=== PATIENT | female | born 2000 | race African-American/Black ===

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

== ENCOUNTER 2019-09-05 18:50 | Emergency (ER) | payer MEDICARE, MEDICAID ==
[~2019-09-05] VITALS: Ht 167.6 cm; Wt 73.6 kg
[2019-09-05 18:58] VITALS: Ht 167.6 cm; Wt 73.6 kg
[2019-09-05 19:55] LABS: BASOPHILS 0.5 % (0-2); CALC OSMOLALITY 276 mosm/kg (275-300); CARBON DIOXIDE 20.5 mmol/L (21.0-32.0); CHLORIDE - SERUM 108 mmol/L (98-107); CREATININE - SERUM 0.5 mg/dL (0.6-1.3); EOSINOPHILS 1.8 % (0-7); GLUCOSE 91 mg/dL (74-106); HEMATOCRIT 25.7 % (36.0-48.0); IMMATURE GRANULOCYTES 0.2 % (0-5); MCH 29.5 pg (26.0-34.0); MCV 84.3 fL (80.0-100.0); MEAN PLATELET VOLUME 9.4 fL (7.4-10.4); MONOCYTES 6.9 % (2-11); NEUTROPHILS 40.6 % (40-80); POTASSIUM - SERUM 3.6 mmol/L (3.5-5.1); RBC 3.05 10x6/uL (4.00-5.40); RDW 15.8 % (11.5-14.5); SODIUM 140 mmol/L (136-145); UREA NITROGEN 7 mg/dL (7-18); WBC 13.1 10x3/uL (4.8-10.8); eGFR NON AFRICAN AMERICAN > 90 mL/min (90-120)
[2019-09-05 19:56] LABS: PLATELET COUNT 486 10x3/uL (130-400)
[2019-09-05 20:06] LABS: ALKALINE PHOSPHATASE 100 U/L (46-116); ALT (SGPT) 27 U/L (10-68); BILIRUBIN - TOTAL 1.78 mg/dL (0.2-1.3); PROTEIN - SERUM 8.1 g/dL (6.4-8.2)
[2019-09-05 20:18] LABS: APPEARANCE CLEAR (CLEAR); COLOR YELLOW (YELLOW); HCG URINE NEGATIVE (NEGATIVE)
[2019-09-05 20:19] LABS: BILIRUBIN NEGATIVE (NEGATIVE); GLUCOSE NEGATIVE (NEGATIVE); KETONE NEGATIVE (NEGATIVE); NITRITE NEGATIVE (NEGATIVE); PROTEIN NEGATIVE (NEGATIVE); RED CELLS - URINE OCC /hpf (0-5); UROBILINOGEN NORMAL (NORMAL); WHITE CELLS - URINE 0-5 /hpf (NEGATIVE)
[2019-09-05 20:20] LABS: BACTERIA FEW /hpf (NEGATIVE); EPITHELIAL CELLS 0-5 /hpf (0-5)
[2019-09-05 22:50] VITALS: BP 112/50
== END 2019-09-05 22:50 | disposition home or self-care (01) ==
LOC: D.ER 18:50
PROVIDERS: Family Medicine
DX: D57.1 Sickle-cell disease without crisis (principal); M79.605 Pain in left leg; M79.604 Pain in right leg; J45.909 Unspecified asthma, uncomplicated

== ENCOUNTER 2019-11-15 23:44 | Inpatient (IN) | payer MEDICARE, MEDICAID ==
[~2019-11-15] VITALS: Ht 167.6 cm; Wt 76.5 kg
[2019-11-16] VITALS (18 sets, daily range): BP systolic 89–114; BP diastolic 40–72
[2019-11-16 01:15] LABS: BASOPHILS 0.2 % (0-2); EOSINOPHILS 1.7 % (0-7); HEMATOCRIT 24.5 % (36.0-48.0); HEMOGLOBIN 8.5 g/dL (12-16); IMMATURE GRANULOCYTES 0.3 % (0-5); LYMPHOCYTES 49.2 % (15-50); MCH 28.6 pg (26.0-34.0); MCHC 34.7 g/dL (31.0-37.0); MCV 82.5 fL (80.0-100.0); MEAN PLATELET VOLUME 9.7 fL (7.4-10.4); MONOCYTES 6.1 % (2-11); NEUTROPHILS 42.5 % (40-80); PLATELET COUNT 433 10x3/uL (130-400); RBC 2.97 10x6/uL (4.00-5.40); RDW 16.3 % (11.5-14.5); WBC 16.8 10x3/uL (4.8-10.8)
[2019-11-16 01:18] LABS: UDS - AMPHET NEGATIVE QUAL (NEGATIVE); UDS - BARB NEGATIVE QUAL (NEGATIVE); UDS - BENZO NEGATIVE QUAL (NEGATIVE); UDS - COCAINE NEGATIVE QUAL (NEGATIVE); UDS - OPIATE NEGATIVE QUAL (NEGATIVE); UDS - PCP NEGATIVE QUAL (NEGATIVE); UDS - THC POSITIVE QUAL (NEGATIVE)
[2019-11-16 01:21] LABS: CALC OSMOLALITY 274 mosm/kg (275-300); CALCIUM 9.1 mg/dL (8.5-10.1); CARBON DIOXIDE 22.2 mmol/L (21.0-32.0); CHLORIDE - SERUM 104 mmol/L (98-107); CREATININE - SERUM 0.5 mg/dL (0.6-1.3); GLUCOSE 80 mg/dL (74-106); POTASSIUM - SERUM 3.7 mmol/L (3.5-5.1); SODIUM 139 mmol/L (136-145); UREA NITROGEN 6 mg/dL (7-18); eGFR NON AFRICAN AMERICAN > 90 mL/min (90-120)
[2019-11-16 01:33] LABS: ALBUMIN 3.8 g/dL (3.4-5.0); ALKALINE PHOSPHATASE 115 U/L (30-120); ALT (SGPT) 60 U/L (10-68); BILIRUBIN - TOTAL 1.97 mg/dL (0.2-1.3); CKMB 0.2 U/L (0.0-3.6); CREATINE KINASE 44 UL (21-215); PROTEIN - SERUM 7.8 g/dL (6.4-8.2); TROPONIN-I < 0.017 ng/mL (0.000-0.060)
[2019-11-16 01:39] LABS: APPEARANCE CLEAR (CLEAR); BILIRUBIN NEGATIVE (NEGATIVE); COLOR YELLOW (YELLOW); GLUCOSE NEGATIVE (NEGATIVE); KETONE NEGATIVE (NEGATIVE); NITRITE NEGATIVE (NEGATIVE); PROTEIN TRACE mg/dL (NEGATIVE); SPECIFIC GRAVITY 1.015 (1.005-1.020); UROBILINOGEN NORMAL (NORMAL)
[2019-11-16 01:40] LABS: WHITE CELLS - URINE 0-5 /hpf (NEGATIVE)
[2019-11-16 01:41] LABS: BACTERIA FEW /hpf (NEGATIVE); EPITHELIAL CELLS 0-5 /hpf (0-5); MUCUS <1+ /lpf (NONE SEEN); RED CELLS - URINE NONE SEEN /hpf (0-5)
--- NOTE | 2019-11-16 02:12 | NUR ---
PATIENT PLACED ON OXYGEN AT 2LPM/NC
--- NOTE | 2019-11-16 02:31 | NUR ---
report to Jaylin GARCIA for shift change.
--- NOTE | 2019-11-16 03:00 | NUR ---
assisted pt to restroom via wheelchair due to bp being low.
--- NOTE | 2019-11-16 03:13 | NUR ---
ns bolus infusion complete at this time.
--- NOTE | 2019-11-16 03:30 | NUR ---
pt stable, provided ice water, denies needs, call light within reach, will continue to monitor.
--- NOTE | 2019-11-16 04:57 | NUR ---
PT BECAME NAUSEATED. PROVIDED ZOFRAN PRN AND PROVIDED COOL WASHCLOTH
--- NOTE | 2019-11-16 05:56 | NUR ---
PT STABLE, CALL LIGHT WITHIN REACH, DENIES NEEDS, WILL CONTINUE TO MONITOR.
--- NOTE | 2019-11-16 06:06 | NUR ---
CONFIRMED ORDER FOR DILAUDID WITH PT BP WITH PROVIDED.
--- NOTE | 2019-11-16 07:50 | NUR ---
PT SLEEPING; AWAKES TO VERBAL STIMULI; MEAL TRAY PROVIDED; NO NEEDS NOTED; WILL CONTINUE TO MONITOR.
--- NOTE | 2019-11-16 08:30 | NUR ---
PT TO RESTROOM WITHOUT ASSIST; NO NEEDS NOTED; WILL CONTINUE TO MONITOR.
--- NOTE | 2019-11-16 09:30 | NUR ---
PT SLEEPING; AWAKES TO VERBAL STIMULI; NO NEEDS NOTED; WILL CONTINUE TO MONITOR.
[2019-11-16 10:19] LABS: HEMATOCRIT 22.6 % (36.0-48.0); HEMOGLOBIN 7.9 g/dL (12-16); MCH 28.9 pg (26.0-34.0); MCV 82.8 fL (80.0-100.0); PLATELET COUNT 399 10x3/uL (130-400); RBC 2.73 10x6/uL (4.00-5.40); RDW 16.1 % (11.5-14.5); WBC 14.2 10x3/uL (4.8-10.8)
[2019-11-16 10:20] LABS: ALKALINE PHOSPHATASE 95 U/L (30-120); ALT (SGPT) 44 U/L (10-68); BILIRUBIN - TOTAL 1.24 mg/dL (0.2-1.3); CALC OSMOLALITY 274 mosm/kg (275-300); CALCIUM 7.9 mg/dL (8.5-10.1); CARBON DIOXIDE 21.6 mmol/L (21.0-32.0); CHLORIDE - SERUM 109 mmol/L (98-107); CREATININE - SERUM 0.4 mg/dL (0.6-1.3); GLUCOSE 83 mg/dL (74-106); POTASSIUM - SERUM 3.9 mmol/L (3.5-5.1); PROTEIN - SERUM 6.2 g/dL (6.4-8.2); SODIUM 140 mmol/L (136-145); UREA NITROGEN 3 mg/dL (7-18); eGFR NON AFRICAN AMERICAN > 90 mL/min (90-120)
--- NOTE | 2019-11-16 10:30 | NUR ---
PT GIVEN ANOTHER DIET TRAY; NO NEEDS NOTED; WILL CONTINUE TO MONITOR.
--- NOTE | 2019-11-16 11:55 | NUR ---
LUNCH TRAY ORDERED;
[2019-11-16 13:20] LABS: EOSINOPHILS 3 % (0-7); LYMPHOCYTES 51 % (15-50); MONOCYTES 8 % (2-11); NEUTROPHILS 37 % (40-80); PLATELET ESTIMATE INCREASED
[2019-11-16 13:22] LABS: ANISOCYTOSIS OCC; CRENATED CELLS OCC; SCHISTOCYTES OCC; SICKLE CELLS OCC
--- NOTE | 2019-11-16 14:28 | NUR ---
PT AWAKE AND ALERT; COLOR WNL FOR RACE; NO NEEDS NOTED; WILL CONTINUE TO MONITOR.
[2019-11-16] MEDS ORDERED: ALBUTEROL SULF8.5 GM INH (17:38)
--- NOTE | 2019-11-16 18:05 | NUR ---
PT ARRIVED VIA W/C FROM ER. PT IS A&O AND SITTING UP IN BED. PT C/O NAUSEA AND PAIN AND WAS PROVIDED WITH PRN MEDICATIONS. CONNECTED PTS NS TO IV POLE @200ML/HR ORDERED. WILL BEGIN ADMISSION WORKUP.
--- NOTE | 2019-11-16 19:15 | NUR ---
REPORT RECEIVED, WILL CONTINUE POC. PATIENT IS AAOX4, LYING IN SEMI-FOWLERS POSITION. NO S/S OF DISTRESS OBSERVED, RR EVEN AND UNLABORED ON ROOM AIR. PIV TO LT WRIST, PATENT, INFUSING NS@ 200ML/HR. PATIENT DENIES NEEDS AT THIS TIME. CL IN REACH, BED LOCKED AND LOWERED. WILL CTM.
--- NOTE | 2019-11-16 21:56 | NUR ---
PT C/O OF NAUSEA AND PAIN. PRN DILAUDID AND ZOFRAN ADMINISTERED PER ORDERS. PATIENT D/C FROM IV TO SHOWER.
[2019-11-17] VITALS: BP 114/67
--- NOTE | 2019-11-17 02:50 | NUR ---
PT C/O OF NAUSEA AND PAIN. PRN ZOFRAN AND DILAUDID ADMINISTERED PER ORDERS.
[2019-11-17 04:00] VITALS: BP 112/41
[2019-11-17 06:21] LABS: BASOPHILS 0.2 % (0-2); EOSINOPHILS 3.7 % (0-7); HEMATOCRIT 23.5 % (36.0-48.0); HEMOGLOBIN 8.3 g/dL (12-16); IMMATURE GRANULOCYTES 0.2 % (0-5); LYMPHOCYTES 42.3 % (15-50); MCH 28.6 pg (26.0-34.0); MCHC 35.3 g/dL (31.0-37.0); MEAN PLATELET VOLUME 9.4 fL (7.4-10.4); MONOCYTES 6.1 % (2-11); NEUTROPHILS 47.5 % (40-80); PLATELET COUNT 411 10x3/uL (130-400); RDW 17.4 % (11.5-14.5); WBC 12.5 10x3/uL (4.8-10.8)
[2019-11-17 06:54] LABS: CALC OSMOLALITY 270 mosm/kg (275-300); CALCIUM 8.6 mg/dL (8.5-10.1); CARBON DIOXIDE 21.7 mmol/L (21.0-32.0); CHLORIDE - SERUM 107 mmol/L (98-107); CREATININE - SERUM 0.4 mg/dL (0.6-1.3); GLUCOSE 78 mg/dL (74-106); MAGNESIUM - SERUM 1.9 mg/dL (1.8-2.4); POTASSIUM - SERUM 4.4 mmol/L (3.5-5.1); SODIUM 138 mmol/L (136-145); eGFR NON AFRICAN AMERICAN > 90 mL/min (90-120)
[2019-11-17 07:00] LABS: UREA NITROGEN 2 mg/dL (7-18)
--- NOTE | 2019-11-17 07:49 | NUR ---
PT RESTING, EYES CLOSED. RR EVEN AND UNLABORED. DENIES NEEDS OR PAIN AT THIS TIME. CALL LIGHT WITHIN REACH. BED IN LOWEST POSITION. WILL CONTINUE TO MONITOR.
[2019-11-17 09:18] VITALS: BP 118/54
--- NOTE | 2019-11-17 11:47 | NUR ---
I have reviewed this patient and I concur with the Shift Assessment completed by the Licensed Practical Nurse today this shift.
[2019-11-17 13:36] VITALS: BP 103/40
[2019-11-17 13:59] LABS: % SATURATION 66 % (15-55); IRON 149 ug/dl (35-150); TOTAL IRON BIND CAPACITY 225 ug/dl (260-445); UNSAT IRON BIND CAPACITY 76 ug/dl (150-375)
[2019-11-17 14:37] LABS: URIC ACID 2.7 mg/dL (2.6-7.2)
[2019-11-17 16:00] VITALS: BP 121/56
--- NOTE | 2019-11-17 19:47 | NUR ---
REPORT RECEIVED, WILL CONTINUE POC. PATIENT IS AAOX4, LYING ON RT SIDE. NO S/S OF DISTRESS OBSERVED, RR EVEN AND UNLABORED ON ROOM AIR. PIV TO LT WRIST, PATENT, INFUSING NS @100ML/HR. PATIENT C/O OF LEG PAIN AND NAUSEA, PRN ZOFRAN AND DILAUDID ADMINISTERED PER ORDERS. PATIENT DENIES FURTHER NEEDS AT THIS TIME. CL IN REACH, BED LOCKED AND LOWERED. WILL CTM.
[2019-11-17 21:00] VITALS: BP 112/62
--- NOTE | 2019-11-17 23:30 | NUR ---
PT C/O NAUSEA AND PAIN. PRN ZOFRAN AND DILAUDID ADMINISTERED PER ORDERS.
--- NOTE | 2019-11-18 00:58 | NUR ---
PT C/O PAIN NEAR HER RIBS. ADMINISTERED PRN MOTRIN.
[2019-11-18 01:18] VITALS: BP 122/70
--- NOTE | 2019-11-18 02:07 | NUR ---
PATIENT C/O OF NAUSEA AND VOMITING. TOO EARLY FOR ZOFRAN. SUPPLIED COOL WASH CLOTH AND EMESIS BAGS. PATIENT ALSO C/O OF PAIN ALL OVER. PAGED LEAD QA ANALYST FOR POSSIBLE ORDERS.
--- NOTE | 2019-11-18 02:30 | NUR ---
RECEIVED CALL BACK FROM HERMINIO AMARO WHO GAVE HER SUGGESTIONS FOR ORDERS BUT WANTED TO CHECK WITH ONCOLOGY/HEMATOLOGY. DR. ERIC SHEETS, ORDERS RECEIVED.
--- NOTE | 2019-11-18 03:00 | NUR ---
ADMINISTERED PHENERGAN IM TO RT VENTROGLUTEAL, PATIENT TOLERATED WELL. ADMINISTERED PRN DILAUDID PER ORDERS.
--- NOTE | 2019-11-18 03:46 | NUR ---
I have reviewed this patient and I concur with the Shift Assessment completed by the Licensed Practical Nurse today this shift.
[2019-11-18 04:42] VITALS: BP 106/52
[2019-11-18 05:42] LABS: CALC OSMOLALITY 271 mosm/kg (275-300); CARBON DIOXIDE 22.1 mmol/L (21.0-32.0); CHLORIDE - SERUM 107 mmol/L (98-107); CREATININE - SERUM 0.4 mg/dL (0.6-1.3); GLUCOSE 90 mg/dL (74-106); MAGNESIUM - SERUM 1.6 mg/dL (1.8-2.4); SODIUM 138 mmol/L (136-145); UREA NITROGEN 2 mg/dL (7-18); eGFR NON AFRICAN AMERICAN > 90 mL/min (90-120)
[2019-11-18 05:44] LABS: BASOPHILS 0.2 % (0-2); EOSINOPHILS 3.8 % (0-7); HEMATOCRIT 22.3 % (36.0-48.0); HEMOGLOBIN 7.9 g/dL (12-16); IMMATURE GRANULOCYTES 0.2 % (0-5); LYMPHOCYTES 57.4 % (15-50); MCH 28.3 pg (26.0-34.0); MCHC 35.4 g/dL (31.0-37.0); MCV 79.9 fL (80.0-100.0); MEAN PLATELET VOLUME 9.5 fL (7.4-10.4); MONOCYTES 6.7 % (2-11); NEUTROPHILS 31.7 % (40-80); PLATELET COUNT 376 10x3/uL (130-400); RBC 2.79 10x6/uL (4.00-5.40); RDW 17.3 % (11.5-14.5); WBC 14.1 10x3/uL (4.8-10.8)
[2019-11-18 05:48] LABS: POTASSIUM - SERUM 3.7 mmol/L (3.5-5.1)
--- NOTE | 2019-11-18 06:00 | NUR ---
TREATED PATIENT PER ELECTROLYTE PROTOCOL FOR MAGNESIUM LEVEL OF 1.6. NEXT DOSE DUE @1000.
[2019-11-18 08:00] VITALS: BP 92/40
[2019-11-18 12:00] VITALS: BP 111/59
--- NOTE | 2019-11-18 14:40 | NUR ---
PT FIRST UNIT OF PRBC'S STARTED AND SPIKED BY RADHA BROWNLEE. VSS. 2L O2NC. NO S/S OF DISTRESS AT THIS TIME. A/O X4. WILL CONTINUE TO MONITOR.
[2019-11-18 16:00] VITALS: BP 113/58
--- NOTE | 2019-11-18 16:49 | NUR ---
BLOOD INFUSING WITHOUT ADVERSE REACTION. CALL LIGHT IN REACH. WILL MONITOR.
--- NOTE | 2019-11-18 18:02 | NUR ---
SECOND UNIT OF BLOOD STARTED BY RADHA TSANG. PT VSS. A/O X4. WILL CONTINUE TO MONITOR.
[2019-11-18 20:30] VITALS: BP 107/57
--- NOTE | 2019-11-18 20:30 | NUR ---
2ND UNIT PRBC COMPLETED WITH NO S/S REACTIONS NOTED. NO COMPLAITNS VOCIED AT THIS TIME. WATCHING TV QUEITLY. CL IN REACH
[2019-11-19 00:30] VITALS: BP 108/49
[2019-11-19 04:16] VITALS: BP 139/70; Ht 167.6 cm; Wt 76.5 kg
[2019-11-19 04:30] VITALS: BP 117/59
[2019-11-19 05:15] LABS: CALC OSMOLALITY 273 mosm/kg (275-300); CALCIUM 7.9 mg/dL (8.5-10.1); CHLORIDE - SERUM 108 mmol/L (98-107); GLUCOSE 105 mg/dL (74-106); MAGNESIUM - SERUM 1.7 mg/dL (1.8-2.4); POTASSIUM - SERUM 3.7 mmol/L (3.5-5.1); SODIUM 139 mmol/L (136-145); UREA NITROGEN 2 mg/dL (7-18)
[2019-11-19 05:18] LABS: BASOPHILS 0.3 % (0-2); EOSINOPHILS 3.1 % (0-7); IMMATURE GRANULOCYTES 0.3 % (0-5); LYMPHOCYTES 55.7 % (15-50); MCH 28.7 pg (26.0-34.0); MCHC 34.6 g/dL (31.0-37.0); MEAN PLATELET VOLUME 9.8 fL (7.4-10.4); MONOCYTES 6.4 % (2-11); NEUTROPHILS 34.2 % (40-80); PLATELET COUNT 413 10x3/uL (130-400); RDW 16.9 % (11.5-14.5); WBC 14.9 10x3/uL (4.8-10.8)
[2019-11-19 05:22] LABS: HEMATOCRIT 28.3 % (36.0-48.0); HEMOGLOBIN 9.8 g/dL (12-16); RBC 3.41 10x6/uL (4.00-5.40)
[2019-11-19 05:28] LABS: CREATININE - SERUM 0.6 mg/dL (0.6-1.3); eGFR NON AFRICAN AMERICAN > 90 mL/min (90-120)
--- NOTE | 2019-11-19 06:55 | NUR ---
I have reviewed this patient and I concur with the Shift Assessment completed by the Licensed Practical Nurse today this shift.
[2019-11-19 08:00] VITALS: BP 103/41
--- NOTE | 2019-11-19 13:47 | NUR ---
I have reviewed this patient and I concur with the Shift Assessment completed by the Licensed Practical Nurse today this shift.
--- NOTE | 2019-11-19 15:03 | MORECARE ---
CASE MANAGEMENT DISCHARGE SUMMARY PATIENT: FERMIN DONAHUE UNIT: [id number] ADM DATE: 11/17/19 AGE: 19 : [birth year] SEX: F ROOM/BED: D.2112 AUTHOR: OKSANA HENRY PHYSICIAN: REFERRING PHYSICIAN: NNAMDI RITCHIE DO DATE OF SERVICE: 11/19/19 Discharge Plan Patient Name: FERMIN DONAHUE Facility: [facility]:[place] : 2000 Planned Disposition: Home Anticipated Discharge Date: Discharge Date: Expected LOS: Initial Reviewer: [email or web address] Initial Review Date: 11/19/2019 Generated: 11/19/19 4:03 pm Comments DCP- Discharge Planning Updated by [email or web address]: Hoa Peoples on 11/19/19 1:[address] Patient Name: FERMIN DONAHUE Admission Status: ER Accout number: [id number] Admission Date: 11-17-2019 : 2000 Admission Diagnosis: Attending: NNAMDI RITCHIE Current LOS: 2 Anticipated DC Date: Planned Disposition: Home Primary Insurance: [employer] Discharge Planning Comments: CM MET WITH PATIENT AFTER OBTAINING VERBAL CONSENT. PATIENT DENIES NEED FOR HH, REHAB OR EQUIP. PLANS TO DC TO HOME TODAY. CM TO FOLLOW AND ASSIST NEEDED. Qa Intern: Hoa Peoples DCPIA - Discharge Planning Initial Assessment Updated by [email or web address]: Hoa Peoples on 11/19/19 2:57 pm * Is the patient Alert and Oriented? Yes * PCP [facility] * Pharmacy [facility] * Preadmission Environment Home with Family * Additional services required to return to the preadmission environment? No * Can the patient safely return to the preadmission environment? Yes * Has this patient been hospitalized within the prior 30 days at any hospital? No Patient Name: FERMIN DONAHUE Page 88200 at 1503 All edits/amendments must be made on the electronic document DICTATION DATE: 11/19/19 1503 DRAWING FRAME TENDER: MARIA ESTHER 11/19/19 1503 RPT#: [id number] DC DATE: STATUS: ADM IN [place] [id number] [place] [id number] END OF REPORT
--- NOTE | 2019-11-19 16:44 | NUR ---
PT DC'D HOME VIA WHEELCHAIR. PT DC INSTRUCTIONS GIVEN AND 20G IV TO LEFT WRIST DC'D.
--- NOTE | 2019-11-20 11:43 | MORECARE ---
CASE MANAGEMENT DISCHARGE SUMMARY PATIENT: FERMIN DONAHUE UNIT: [id number] ADM DATE: 11/17/19 AGE: 19 : 89 SEX: F ROOM/BED: D.0122 AUTHOR: OKSANA HENRY PHYSICIAN: REFERRING PHYSICIAN: NNAMDI RITCHIE DO DATE OF SERVICE: 11/20/19 Discharge Plan Patient Name: FERMIN DONAHUE Facility: [facility]:[place] : 2000 Planned Disposition: Home Anticipated Discharge Date: Discharge Date: 11/19/2019 Expected LOS: Initial Reviewer: [email or web address] Initial Review Date: 11/19/2019 Generated: 11/20/19 12:43 pm Comments DCP- Discharge Planning Updated by [email or web address]: Hoa Peoples on 11/19/19 1:[address] Patient Name: FERMIN DONAHUE Admission Status: ER Accout number: [id number] Admission Date: 11-17-2019 : 2000 Admission Diagnosis: Attending: NNAMDI RITCHIE Current LOS: 2 Anticipated DC Date: Planned Disposition: Home Primary Insurance: [employer] Discharge Planning Comments: CM MET WITH PATIENT AFTER OBTAINING VERBAL CONSENT. PATIENT DENIES NEED FOR HH, REHAB OR EQUIP. PLANS TO DC TO HOME TODAY. CM TO FOLLOW AND ASSIST NEEDED. Alley Worker: Hoa Peoples DCPIA - Discharge Planning Initial Assessment Updated by [email or web address]: Hoa Peoples on 11/19/19 2:57 pm * Is the patient Alert and Oriented? Yes * PCP [facility] * Pharmacy [facility] * Preadmission Environment Home with Family * Additional services required to return to the preadmission environment? No * Can the patient safely return to the preadmission environment? Yes * Has this patient been hospitalized within the prior 30 days at any hospital? No Last DP export: 11/19/19 2:03 p Patient Name: FERMIN DONAHUE Page [id number] at 1143 All edits/amendments must be made on the electronic document DICTATION DATE: 11/20/19 1143 REEFER TRUCK DRIVER: MARIA ESTHER 11/20/19 1143 RPT#: [id number] DC DATE:11/19/19 STATUS: DIS IN [facility] [address] [facility] [place] [address] END OF REPORT
== END 2019-11-19 16:46 | disposition home or self-care (01) | DRG 812 ==
LOC: D.ER 23:44 → D.M2 11-16 02:33 → OBSVTIME 11-16 16:19 → D.M2 11-17 12:08
PROVIDERS: Family Medicine; Internal Medicine Hematology & Oncology; ADMIT Family Medicine; ATTEND Family Medicine
DX: D57.00 Hb-SS disease with crisis, unspecified (principal); J45.909 Unspecified asthma, uncomplicated; D50.9 Iron deficiency anemia, unspecified; F12.90 Cannabis use, unspecified, uncomplicated

== ENCOUNTER 2020-06-07 16:07 | Emergency (ER) | payer MEDICARE, MEDICAID ==
[~2020-06-07] VITALS: Ht 322.6 cm; Wt 72.7 kg
[~2020-06-07 16:07] MED LIST changes: +ALBUTEROL SULF8.5 GM INH
[2020-06-07 16:27] VITALS: BP 130/68; Ht 322.6 cm; Wt 72.7 kg
[2020-06-07 17:52] LABS: HCG URINE NEGATIVE (NEGATIVE)
[2020-06-07 17:56] LABS: BASOPHILS 0.4 % (0-2); EOSINOPHILS 1.4 % (0-7); HEMATOCRIT 25.1 % (36.0-48.0); HEMOGLOBIN 8.7 g/dL (12-16); IMMATURE GRANULOCYTES 0.1 % (0-5); LYMPHOCYTES 47.9 % (15-50); MCH 30.3 pg (26.0-34.0); MCHC 34.7 g/dL (31.0-37.0); MCV 87.5 fL (80.0-100.0); MEAN PLATELET VOLUME 9.2 fL (7.4-10.4); MONOCYTES 4.6 % (2-11); NEUTROPHILS 45.6 % (40-80); PLATELET COUNT 449 10x3/uL (130-400); RBC 2.87 10x6/uL (4.00-5.40); RDW 15.9 % (11.5-14.5); WBC 13.9 10x3/uL (4.8-10.8)
[2020-06-07 18:00] LABS: BILIRUBIN NEGATIVE (NEGATIVE); KETONE NEGATIVE (NEGATIVE); NITRITE NEGATIVE (NEGATIVE); UROBILINOGEN NORMAL mg/dL (< 2)
[2020-06-07 18:16] LABS: CALC OSMOLALITY 272 mosm/kg (275-300); CARBON DIOXIDE 23.7 mmol/L (21.0-32.0); CHLORIDE - SERUM 105 mmol/L (98-107); CREATININE - SERUM 0.6 mg/dL (0.6-1.3); GLUCOSE 85 mg/dL (74-106); SODIUM 138 mmol/L (136-145); UREA NITROGEN 6 mg/dL (7-18); eGFR NON AFRICAN AMERICAN > 90 mL/min (90-120)
[2020-06-07 18:22] LABS: ALBUMIN 4.3 g/dL (3.4-5.0); ALKALINE PHOSPHATASE 114 U/L (30-120); ALT (SGPT) 61 U/L (10-68); BILIRUBIN - TOTAL 2.36 mg/dL (0.2-1.3); PROTEIN - SERUM 7.7 g/dL (6.4-8.2)
== END 2020-06-07 18:48 | disposition left against medical advice (07) ==
LOC: D.ER 16:07
DX: D57.1 Sickle-cell disease without crisis (principal)

== ENCOUNTER 2020-12-21 03:27 | Emergency (ER) | payer MEDICARE, MEDICAID ==
[~2020-12-21] VITALS: Ht 170.2 cm; Wt 73.6 kg
[~2020-12-21 03:27] MED LIST changes: +NAPROSYN500 MG PO
[2020-12-21 03:30] VITALS: Ht 170.2 cm; Wt 73.6 kg
[2020-12-21 04:11] LABS: BASOPHILS 0.3 % (0-2); HEMATOCRIT 26.4 % (36.0-48.0); HEMOGLOBIN 9.2 g/dL (12-16); IMMATURE GRANULOCYTES 0.3 % (0-5); LYMPHOCYTE ABS# 6.12 10x3/uL (1.18-3.74); LYMPHOCYTES 35.5 % (15-50); MCH 30.1 pg (26.0-34.0); MCHC 34.8 g/dL (31.0-37.0); MCV 86.3 fL (80.0-100.0); MEAN PLATELET VOLUME 9.2 fL (7.4-10.4); NEUTROPHIL ABS# 9.98 10x3/uL (1.56-6.13); NEUTROPHILS 57.9 % (40-80); RBC 3.06 10x6/uL (4.00-5.40); RDW 14.6 % (11.5-14.5); RETIC 12.55 % (0.45-2.28); WBC 17.3 10x3/uL (4.8-10.8)
[2020-12-21 04:12] LABS: PLATELET COUNT 681 10x3/uL (130-400)
[2020-12-21 04:17] LABS: CALC OSMOLALITY 274 mosm/kg (275-300); CARBON DIOXIDE 21.8 mmol/L (21.0-32.0); CHLORIDE - SERUM 103 mmol/L (98-107); CREATININE - SERUM 0.6 mg/dL (0.6-1.3); GLUCOSE 105 mg/dL (74-106); POTASSIUM - SERUM 3.4 mmol/L (3.5-5.1); SODIUM 139 mmol/L (136-145); UREA NITROGEN 5 mg/dL (7-18); eGFR NON AFRICAN AMERICAN > 90 mL/min (90-120)
[2020-12-21 04:23] LABS: ALBUMIN 4.3 g/dL (3.4-5.0); ALKALINE PHOSPHATASE 123 U/L (30-120); ALT (SGPT) 34 U/L (10-68); BILIRUBIN - TOTAL 2.09 mg/dL (0.2-1.3); PROTEIN - SERUM 8.4 g/dL (6.4-8.2)
[2020-12-21] MEDS ORDERED: MORPHINE IMMEDI15 MG PO (04:28)
[2020-12-21 05:00] VITALS: BP 107/55
== END 2020-12-21 05:00 | disposition home or self-care (01) ==
LOC: D.ER 03:27
PROVIDERS: Family Medicine
DX: D57.00 Hb-SS disease with crisis, unspecified (principal); R07.89 Other chest pain

== ENCOUNTER 2020-12-31 01:50 | Emergency (ER) | payer MEDICARE, MEDICAID ==
[~2020-12-31 01:50] MED LIST changes: +MORPHINE IMMEDI15 MG PO
[2020-12-31] MEDS ORDERED: ZOFRAN ODT4 MG/UDTAB PO (02:23)
[2020-12-31] MEDS ORDERED: FLUTICASONE PRO16 GM NASAL (02:23)
[2020-12-31] MEDS ORDERED: CLEOCIN HCL300 MG PO (02:23)
== END 2020-12-31 02:37 | disposition home or self-care (01) ==
LOC: D.ER 01:50
DX: R05 Cough (principal); J01.90 Acute sinusitis, unspecified; J45.909 Unspecified asthma, uncomplicated

== ENCOUNTER 2021-01-13 22:44 | Emergency (ER) | payer MEDICARE, MEDICAID ==
[~2021-01-13] VITALS: Ht 170.2 cm; Wt 73.6 kg
[~2021-01-13 22:44] MED LIST changes: +CLEOCIN HCL300 MG PO; +FLUTICASONE PRO16 GM NASAL; +ZOFRAN ODT4 MG/UDTAB PO
[2021-01-13 22:48] VITALS: Ht 170.2 cm; Wt 73.6 kg
[2021-01-14 00:27] LABS: BASOPHILS 0.3 % (0-2); EOSINOPHILS 1.7 % (0-7); HEMATOCRIT 25.4 % (36.0-48.0); HEMOGLOBIN 8.8 g/dL (12-16); IMMATURE GRANULOCYTES 0.4 % (0-5); LYMPHOCYTES 48.5 % (15-50); MCH 29.8 pg (26.0-34.0); MCHC 34.6 g/dL (31.0-37.0); MCV 86.1 fL (80.0-100.0); MEAN PLATELET VOLUME 9.6 fL (7.4-10.4); MONOCYTES 4.5 % (2-11); NEUTROPHILS 44.6 % (40-80); PLATELET COUNT 644 10x3/uL (130-400); RBC 2.95 10x6/uL (4.00-5.40); RDW 15.3 % (11.5-14.5); RETIC 13.51 % (0.45-2.28)
[2021-01-14 00:28] LABS: CALC OSMOLALITY 274 mosm/kg (275-300); CALCIUM 8.6 mg/dL (8.5-10.1); CARBON DIOXIDE 22.3 mmol/L (21.0-32.0); CHLORIDE - SERUM 105 mmol/L (98-107); CREATININE - SERUM 0.5 mg/dL (0.6-1.3); GLUCOSE 92 mg/dL (74-106); POTASSIUM - SERUM 3.4 mmol/L (3.5-5.1); SODIUM 139 mmol/L (136-145); UREA NITROGEN 5 mg/dL (7-18); eGFR NON AFRICAN AMERICAN > 90 mL/min (90-120)
[2021-01-14 00:30] LABS: HCG SERUM NEGATIVE (NEGATIVE)
[2021-01-14 00:41] LABS: ALKALINE PHOSPHATASE 97 U/L (30-120); ALT (SGPT) 20 U/L (10-68); BILIRUBIN - TOTAL 2.28 mg/dL (0.2-1.3); PROTEIN - SERUM 7.7 g/dL (6.4-8.2)
[2021-01-14] MEDS ORDERED: HYDROCODONE-AC1 EAC2 PO (00:51)
[2021-01-14 01:48] VITALS: BP 122/74
== END 2021-01-14 01:49 | disposition home or self-care (01) ==
LOC: D.ER 22:44
PROVIDERS: Emergency Medicine
DX: D57.1 Sickle-cell disease without crisis (principal); D64.9 Anemia, unspecified; D72.829 Elevated white blood cell count, unspecified; E87.6 Hypokalemia; M79.605 Pain in left leg; M79.604 Pain in right leg

== ENCOUNTER 2021-02-09 12:19 | Inpatient (IN) | payer MEDICARE, MEDICAID ==
[~2021-02-09] VITALS: Ht 170.2 cm; Wt 77.3 kg
[2021-02-09] VITALS (7 sets, daily range): BP systolic 106–149; BP diastolic 56–93
[~2021-02-09 12:19] MED LIST changes: +HYDROCODONE-AC1 EAC2 PO
[2021-02-09 13:23] LABS: BASOPHILS 0.4 % (0-2); EOSINOPHILS 2.2 % (0-7); HEMATOCRIT 23.4 % (36.0-48.0); HEMOGLOBIN 8.3 g/dL (12-16); IMMATURE GRANULOCYTES 0.3 % (0-5); LYMPHOCYTE ABS# 6.51 10x3/uL (1.18-3.74); LYMPHOCYTES 45.4 % (15-50); MCHC 35.5 g/dL (31.0-37.0); MCV 84.5 fL (80.0-100.0); MEAN PLATELET VOLUME 9.6 fL (7.4-10.4); MONOCYTES 9.2 % (2-11); NEUTROPHIL ABS# 6.09 10x3/uL (1.56-6.13); NEUTROPHILS 42.5 % (40-80); RBC 2.77 10x6/uL (4.00-5.40); RDW 16.5 % (11.5-14.5); RETIC 16.98 % (0.45-2.28); WBC 14.4 10x3/uL (4.8-10.8)
[2021-02-09 13:24] LABS: PLATELET COUNT 384 10x3/uL (130-400)
[2021-02-09 13:30] LABS: CALC OSMOLALITY 272 mosm/kg (275-300); CARBON DIOXIDE 23.8 mmol/L (21.0-32.0); CHLORIDE - SERUM 103 mmol/L (98-107); CREATININE - SERUM 0.5 mg/dL (0.6-1.3); GLUCOSE 93 mg/dL (74-106); POTASSIUM - SERUM 3.5 mmol/L (3.5-5.1); SODIUM 138 mmol/L (136-145); UREA NITROGEN 3 mg/dL (7-18); eGFR NON AFRICAN AMERICAN > 90 mL/min (90-120)
[2021-02-09 13:36] LABS: ALBUMIN 4.2 g/dL (3.4-5.0); ALKALINE PHOSPHATASE 120 U/L (30-120); ALT (SGPT) 46 U/L (10-68); BILIRUBIN - TOTAL 2.09 mg/dL (0.2-1.3); PROTEIN - SERUM 8.2 g/dL (6.4-8.2)
--- NOTE | 2021-02-09 18:07 | NUR ---
PLACED ON 2LNC D/T POX [id number] AND SICKLE CELL. POX 97% AT THIS TIME
[2021-02-10] VITALS (8 sets, daily range): BP systolic 99–143; BP diastolic 57–77; Ht 170.2 cm; Wt 77.3 kg
[2021-02-10 06:51] LABS: HEMATOCRIT 20.6 % (36.0-48.0); LYMPHOCYTE ABS# 8.46 10x3/uL (1.18-3.74); MCH 29.6 pg (26.0-34.0); MCV 84.8 fL (80.0-100.0); MEAN PLATELET VOLUME 10.3 fL (7.4-10.4); PLATELET COUNT 333 10x3/uL (130-400); RBC 2.43 10x6/uL (4.00-5.40); RDW 16.7 % (11.5-14.5); WBC 13.5 10x3/uL (4.8-10.8)
[2021-02-10 06:52] LABS: HEMOGLOBIN 7.2 g/dL (12-16)
[2021-02-10 06:58] LABS: ALBUMIN 3.5 g/dL (3.4-5.0); ALKALINE PHOSPHATASE 100 U/L (30-120); ALT (SGPT) 38 U/L (10-68); BILIRUBIN - TOTAL 1.36 mg/dL (0.2-1.3); CALC OSMOLALITY 275 mosm/kg (275-300); CALCIUM 8.5 mg/dL (8.5-10.1); CARBON DIOXIDE 22.8 mmol/L (21.0-32.0); CHLORIDE - SERUM 108 mmol/L (98-107); CREATININE - SERUM 0.5 mg/dL (0.6-1.3); GLUCOSE 100 mg/dL (74-106); MAGNESIUM - SERUM 2.3 mg/dL (1.8-2.4); PHOSPHOROUS 4.3 mg/dL (2.5-4.9); POTASSIUM - SERUM 3.7 mmol/L (3.5-5.1); PROTEIN - SERUM 7.1 g/dL (6.4-8.2); SODIUM 140 mmol/L (136-145); UREA NITROGEN 4 mg/dL (7-18); eGFR NON AFRICAN AMERICAN > 90 mL/min (90-120)
--- NOTE | 2021-02-10 07:00 | NUR ---
REPORT RECEIVED. PATIENT IS LYING ON BED ON RIGHT SIDE, RESTING WITH EYES CLOSED. NO S/S OF DISTRESS OBSERVED, RR EVEN AND UNLABORED ON 2.5L O2 VIA NC. PIV TO LT FA, PATENT, INFUSING NS @ 25ML/HR. NO NEEDS EXPRESSED AT THIS TIME. CL IN REACH, BED LOCKED AND LOWERED. FAMILY MEMBER AT BEDSIDE. WILL CPOC.
[2021-02-10 07:24] LABS: BURR CELLS OCC; EOSINOPHILS 2 % (0-7); LYMPHOCYTES 66 % (15-50); MONOCYTES 1 % (2-11); NEUTROPHILS 31 % (40-80); PLATELET ESTIMATE NORMAL; SICKLE CELLS 1+; TARGET CELLS 1+
--- NOTE | 2021-02-10 12:39 | NUR ---
I have reviewed this patient and I concur with the Shift Assessment completed by the Licensed Practical Nurse today this shift.
--- NOTE | 2021-02-10 12:56 | NUR ---
BLOOD TRANSFUSION INITATED BY RADHA RUBI. PRE-INFUSION VS 98.1, 87, 20, 136/81
--- NOTE | 2021-02-10 16:34 | NUR ---
2ND UNIT OF BLOOD INITIATED BY RADHA RUBI
[2021-02-11 00:48] VITALS: BP 123/55
[2021-02-11 04:27] VITALS: BP 108/51
[2021-02-11 05:25] VITALS: BP 108/51
[2021-02-11 07:25] LABS: ALBUMIN 3.4 g/dL (3.4-5.0); ALKALINE PHOSPHATASE 99 U/L (30-120); ALT (SGPT) 38 U/L (10-68); CALC OSMOLALITY 273 mosm/kg (275-300); CALCIUM 8.4 mg/dL (8.5-10.1); CARBON DIOXIDE 19.7 mmol/L (21.0-32.0); CHLORIDE - SERUM 107 mmol/L (98-107); CREATININE - SERUM 0.4 mg/dL (0.6-1.3); GLUCOSE 87 mg/dL (74-106); MAGNESIUM - SERUM 2.2 mg/dL (1.8-2.4); PHOSPHOROUS 4.3 mg/dL (2.5-4.9); POTASSIUM - SERUM 3.9 mmol/L (3.5-5.1); PROTEIN - SERUM 6.8 g/dL (6.4-8.2); SODIUM 139 mmol/L (136-145); UREA NITROGEN 3 mg/dL (7-18); eGFR NON AFRICAN AMERICAN > 90 mL/min (90-120)
[2021-02-11 07:42] LABS: BASOPHILS 0.3 % (0-2); EOSINOPHILS 2.4 % (0-7); IMMATURE GRANULOCYTES 0.1 % (0-5); LYMPHOCYTE ABS# 8.81 10x3/uL (1.18-3.74); LYMPHOCYTES 61.3 % (15-50); MCH 29.4 pg (26.0-34.0); MCHC 35.3 g/dL (31.0-37.0); MCV 83.3 fL (80.0-100.0); MEAN PLATELET VOLUME 10.4 fL (7.4-10.4); MONOCYTES 5.4 % (2-11); NEUTROPHIL ABS# 4.38 10x3/uL (1.56-6.13); NEUTROPHILS 30.5 % (40-80); PLATELET COUNT 356 10x3/uL (130-400); RDW 16.8 % (11.5-14.5); WBC 14.4 10x3/uL (4.8-10.8)
[2021-02-11 07:43] LABS: HEMATOCRIT 26.9 % (36.0-48.0); HEMOGLOBIN 9.5 g/dL (12-16); RBC 3.23 10x6/uL (4.00-5.40)
[2021-02-11 08:42] VITALS: BP 107/63
--- NOTE | 2021-02-11 10:01 | NUR ---
PATIENT [id number] LYING SUPINE IN BED, NO S/S OF DISTRESS, RESP EVEN AND NON LABORED, MEDICATIONS ADMINISTERED WITH NO COMPLICATIONS, NO FURTHER NEEDS AT THIS TIME, CLIR, BLP
== END 2021-02-11 13:01 | disposition home or self-care (01) | DRG 812 ==
LOC: D.ER 12:19 → D.M2 18:03 → OBSVTIME 18:03 → D.M2 02-10 09:14
PROVIDERS: Family Medicine; ADMIT Emergency Medicine; ATTEND Emergency Medicine
DX: D57.00 Hb-SS disease with crisis, unspecified (principal); J45.909 Unspecified asthma, uncomplicated; J06.9 Acute upper respiratory infection, unspecified; E80.6 Other disorders of bilirubin metabolism